=== PATIENT | female | born 1975 | race Two or more races ===

== ENCOUNTER 2024-07-12 19:12 | Emergency (ER) | payer MEDICAID ==
[~2024-07-12] VITALS: Ht 157.5 cm; Wt 67.6 kg
[2024-07-12 20:43] LABS: Rapid Strep A Screen-Throat Negative
[2024-07-12 20:57] LABS: COVID19 ANTIGEN SOFIA FIA NEGATIVE (NEGATIVE)
[2024-07-12 21:05] VITALS: BP 119/77; PULSE 81; RESP 18; TEMP 98.7; O2SAT 98
--- NOTE | 2024-07-12 21:36 | ED.PDOC ---
Eye-HPI HPI Comments This is a 49-year-old female presents to the ED chief complaint sore throat on and off x2 weeks. She reports symptoms of cough nasal congestion also white film on her tongue burning and pain. She states [id number] medications with little relief. She also notes she uses a steroid inhaler daily. Denies chest pain, difficulty breathing, shortness of breath, abdominal pain, nausea vomiting diarrhea. 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 Pertinent POTTERY MACHINE OPERATOR History Family History Family History: Reviewed,noncontributory to illness Social History Smoker: Non-Smoker Alcohol: Denies ETOH Use Drugs: Denies Drug Use Constitutional: denies: chills, diaphoresis, fatigue, fever, malaise, sweats, weakness, others EENTM: reports: throat pain, others (Tongue pain and white fell); denies: blurred vision, double vision, ear bleeding, ear discharge, ear drainage, ear pain, ear ringing, eye pain, eye redness, hearing loss, mouth pain, mouth swelling, nasal discharge, nose bleeding, nose congestion, nose pain, photophobia, tearing, throat swelling, voice changes Respiratory: reports: cough; denies: hemoptysis, orthopnea, SOB at rest, shortness of breath, SOB with excertion, stridor, wheezing, others Cardiovascular: denies: chest pain, dizzy spells, diaphoresis, Dyspnea on exertion, edema, irregular heart beat, left arm pain, lightheadedness, palpitations, PND, syncope, others Gastrointestinal: denies: abdomen distended, abdominal pain, blood streaked bowels, constipated, diarrhea, dysphagia, difficulty swallowing, hematemesis, melena, nausea, poor appetite, poor fluid intake, rectal bleeding, rectal pain, vomiting, others Genitourinary: denies: abnormal vagina bleeding, burning, dyspareunia, dysuria, flank pain, frequency, hematuria, incontinence, pain, , vagina discharge, urgency, others Neurological: denies: dizziness, fainting, headache, left sided numbness, left sided weakness, numbness, paresthesia, pre-existing deficit, right sided numbness, right sided weakness, seizure, speech problems, tingling, tremors, weakness, others Musculoskeletal: denies: back pain, gout, joint pain, joint swelling, muscle pain, muscle stiffness, neck pain, others Integumetry: denies: bruises, change in color, change in hair/nails, dryness, laceration, lesions, lumps, rash, wounds, others Allergic/Immunocompromised: denies: Difficulty Healing, Frequent Infections, Hi ves, Itching, others Hematologic/Lymphatic: denies: anemia, blood clots, easy bleeding, easy bruising, swollen glands, others Endocrine: denies: excessive hunger, excessive sweating, excessive thirst, excessive urination, flushing, intolerance to cold, intolerance to heat, unexplained weight gain, unexplained weight loss, others Psychiatric: denies: anxiety, bipolar disorder, depression, hopeless, panic disorder, schizophrenia, sleepless, suicidal, others Physical Exam General Appearance: No Apparent Distress, Normal HEENT: Pharynx Normal, TMs Normal, Other (White film noted over tongue) Neck: Full Range of Motion, Non-Tender, Normal, Normal Inspection Respiratory: Chest Non-Tender, Lungs Clear, No Accessory Muscle Use, No Respiratory Distress, Normal Breath Sounds Cardiovascular: No Edema, No JVD, No Murmur, No Gallop, Normal Peripheral Pulses, Regular Rate/Rhythm Breast Exam: Deferred Gastrointestinal: No Organomegaly, Non Tender, No Pulsatile Mass, Normal Bowel Sounds, Soft Genitalia: Deferred Pelvic: Deferred Rectal: Deferred Extremities: Normal capillary refill, Normal inspection, Normal range of motion, Non-tender, No pedal edema Musculoskeletal : Apperance: Normal Neurologic: Alert, chips screen tender II-XII nml as Tested, No Motor Deficits, Normal Affect, Normal Mood, No Sensory Deficits Cerebellar Function: Normal Reflexes: Normal Skin: Dry, Normal Color, Warm Lymphatic: No Adenopathy Was a procedure done? Was a procedure done?: No EENT DIFF Eye: N/A Sore Throat: Streptococcal, Viral Pharyngitis Other Differential Diagnosis Thrush X-Ray, Labs, Meds, VS Vital Signs Date Time Temp Pulse Resp B/P (MAP) Pulse Ox O2 Delivery O2 Flow Rate FiO2 07/12/24 21:05 81 18 98 Room Air 07/12/24 21:05 98.7 81 18 119/77 (91) 98 98.7 07/12/24 19:28 98.9 88 18 144/81 (102) 98 Lab Test 07/12/24 20:19 Range/Units Influenza Type A Antigen Negative Negative Influenza Type B Antigen Negative Negative SARS-CoV-2 Antigen (Rapid) Negative NEGATIVE Group A Streptococcus Rapid Negative X-Ray, Labs, Meds, VS Comment Influenza a and B swab COVID-19 swab and strep swab were negative. Patient requesting to leave prior to influenza results. We will treat for thrush based on physical exam findings reported history. Script fluconazole and nystatin. Advised to call for influenza a and B results. Advised to rest increase p.o. fluids consider probiotic avoid antibiotics if possible. Follow up with PCP in 2-3 days as necessary. ER return precautions given. Patient indicated understanding. Patient agrees with discharge plan of care. Time of 1ST Reevaluation: 21:43 Reevaluation 1ST: Improved Patient Education/Counseling: Diagnosis, Treatment, Prognosis, Need For Follow Up Family Education/Counseling: No Family Present Departure 1 Departure Time of Disposition: 21:43 Impression: Primary Impression: Thrush, oral Disposition: 01 HOME / SELF CARE / HOMELESS Condition: Stable e-Prescriptions Nystatin (Mouth-Throat) (Mycostatin (Mouth-Throat)) 500,000 Units/5 Ml Ss 5 ML MT QID for 10 Days, #200 ML Prov: JAZIEL FERNÁNDEZ 07/12/24 Fluconazole (Fluconazole) 200 Mg Tab 1 TAB PO DAILY for 5 Days, #5 TAB Prov: JAZIEL FERNÁNDEZ 07/12/24 Discharged With: Self Critical Care Note Critical Care Time?: No Stability Stability form required: JAZIEL Urbina Jul 12, 2024 21:36
[2024-07-12] MEDS ORDERED: FLUC200T50 PO (21:47)
[2024-07-12] MEDS ORDERED: NYS5LQ MT (21:47)
[2024-07-12 21:51] LABS: Rapid Influenza A Negative (Negative); Rapid Influenza B Negative (Negative)
[2024-07-13] MEDS ORDERED: NYS5LQ MT (10:39)
[2024-07-13] MEDS ORDERED: FLUC200T50 PO (10:39)
== END 2024-07-12 22:13 | disposition home or self-care (01) ==
LOC: ER 19:12
DX: B37.0 Candidal stomatitis (principal); J45.909 Unspecified asthma, uncomplicated; Z79.899 Other long term (current) drug therapy; Z20.822 Contact with and (suspected) exposure to COVID-19
CPT/HCPCS: 36415; 87070; 87426; 87804; 87880